=== PATIENT | female | born 1960 | race Caucasian/White ===

== ENCOUNTER → 2020-10-07 | Outpatient (REF) | payer OTHER ==
[2020-10-07 16:02] LABS: AMORPHOUS SEDIMENT SMALL (NEGATIVE); BACTERIA, URINE AUTO NEGATIVE (NEGATIVE); MUCUS, URINE SMALL (NEGATIVE); RBC, URINE AUTO 0 /HPF (0-3); SQUAMOUS EPITHELIAL CELL UR AU 7 /HPF (0-6); WBC, URINE AUTO 0 /HPF (0-3)
== END ==
LOC: M SMT 15:31
PROVIDERS: ATTEND Specialist
DX: N39.46 Mixed incontinence (principal)

== ENCOUNTER 2023-05-27 08:45 | Day surgery (SDC) | payer MEDICARE, OTHER ==
[2023-05-12] MEDS: LIDOCAINE 3.5 % 1ML OPHTH TOPICAL GEL OU ONE (06:00)
[2023-05-12] MEDS: OFLOXACIN 0.3 % (OCUFLOX) OPTH SOL 5ML OD ONE (06:00)
[~2023-05-27] VITALS: Ht 162.6 cm; Wt 148.2 kg
[~2023-05-27 08:45] MED LIST: ALBU8.5H INH; CHOL12508 PO; CYCLOPENTOLATE 1% OPHTH SOLN 2ML BTL OD SCH; DULO1CAP5 PO; HYDR12CA PO; IRON325T2 PO; LEVO175T2 PO; LIDOCAINE 3.5 % 1ML OPHTH TOPICAL GEL OU ONE; LOSA25TA13 PO; MELO15TA28 PO; OFLOXACIN 0.3 % (OCUFLOX) OPTH SOL 5ML OD ONE; OMEP-173 PO; OXYGEN; PHENYLEPHRINE 10% OPHTH SOL 5ML OD PRN; PHENYLEPHRINE 2.5% OPHTH SOL 2ML OD SCH; TROPICAMIDE 1% OPHTH SOLN 15ML OD SCH; VIT1TAB.12 PO; VITA-243 PO
[2023-05-27] MEDS ORDERED: MIDAZOLAM INJ 2MG/2ML VIAL As Ordered ONE (09:12)
[2023-05-27] MEDS: PHENYLEPHRINE 2.5% OPHTH SOL 2ML OD SCH (09:48)
[2023-05-27] MEDS: TROPICAMIDE 1% OPHTH SOLN 15ML OD SCH (09:48)
[2023-05-27] MEDS: CYCLOPENTOLATE 1% OPHTH SOLN 2ML BTL OD SCH (09:48)
[2023-05-27] MEDS: CEFUROXIME 1MG/0.1ML INTRACAMERAL INJ As Ordered ONE (10:29)
[2023-05-27] MEDS: LIDOCAINE 1% SDV 5ML VIAL As Ordered ONE (10:29)
[2023-05-27] MEDS: BSS IRRIG/VANCO(10MG)/TOBRA(5MG)/EPINEPH(1:1000-0.5CC)500ML BAG-ORONLY IR ONE (10:29)
[2023-05-27] MEDS: BSS IRRIG/VANCO(10MG)/TOBRA(5MG)/EPINEPH(1:1000-0.5CC)500ML BAG-ORONLY As Ordered ONE (10:30)
[2023-05-27 10:40] VITALS: BP 141/82; TEMP 96.2; O2SAT 95
== END 2023-05-27 11:00 | disposition home or self-care (01) ==
LOC: M SDC 08:45
PROVIDERS: ATTEND Ophthalmology
DX: H25.11 Age-related nuclear cataract, right eye (principal); R06.83 Snoring; I10 Essential (primary) hypertension; E78.00 Pure hypercholesterolemia, unspecified; R12 Heartburn; F84.0 Autistic disorder; J44.9 Chronic obstructive pulmonary disease, unspecified; Z99.81 Dependence on supplemental oxygen; F32.A Depression, unspecified; Z88.8 Allergy status to other drugs, medicaments and biological substances; Z79.899 Other long term (current) drug therapy
CPT/HCPCS: 66984; J0697; J2250; V2632